=== PATIENT | female | born 1955 | race Caucasian/White ===

== ENCOUNTER → 2017-10-10 | Outpatient (CLI) | payer OTHER ==
[~2017-10-10] MED LIST: ALBU1AER9 INH; AMLO5TAB2 PO; CLOB-65 EXT; CONJ.6255 PO; DESO0.0562 TOP; FLUO20CA37 PO; FLUT0.0529 NAE; HYDR25TA4 PO; LISI40TA PO; OMEP20CA9 PO; OXYC-57 PO; SALI0.6517 NAE; SIMV20TA5 PO; TPRSR/25 PO; ZNT/150 PO
--- NOTE | 2017-10-10 15:32 | MAMMOGRAPHY REPORT ---
BILATERAL DIGITAL SCREENING MAMMOGRAM TOMOSYNTHESIS WITH CAD: 10/10/2017 CLINICAL HISTORY: Routine screening. Patient has no complaints. TECHNIQUE: Breast tomosynthesis in addition to standard 2D mammography was performed. Current study was also evaluated with a Computer Aided Detection (CAD) system. COMPARISON: Comparison is made to exams dated: 10/09/2016 mammogram, 10/06/2015 mammogram, 4 mammogram, 08/27/2013 mammogram, 08/24/2012 mammogram, and 08/22/2011 mammogram - [facility]. BREAST COMPOSITION: There are scattered areas of fibroglandular density in both breasts. FINDINGS: No suspicious masses, calcifications, or areas of architectural distortion are noted in ei ther breast. There has been no significant interval change compared to prior exams. IMPRESSION: ACR BI-RADS CATEGORY 1: NEGATIVE There is no mammographic evidence of malignancy. A 1 year screening mammogram is recommended. The pa tient will receive written notification of the results. Approximately 10% of breast cancers are not detected with mammography. A negative mammographic report should not delay biopsy if a clinically suggestive mass is present. Siena Figueroa M.D. ah/:10/10/2017 15:06:12 Catering Attendant: Carolyn MAST(Gely)(Yessica)(BD), [facility] letter sent: Normal 1/2 BI-RADS Code: ACR BI-RADS Category 1: Negative
== END | disposition home or self-care (01) ==
LOC: C.MAMM 11:34
PROVIDERS: ATTEND Obstetrics & Gynecology
DX: Z12.31 Encounter for screening mammogram for malignant neoplasm of breast (principal)

== ENCOUNTER → 2017-10-14 | Outpatient (CLI) | payer OTHER | END | disposition home or self-care (01) | LOC: C.PAPS 07:40 | PROVIDERS: ATTEND Obstetrics & Gynecology | DX: Z12.4 Encounter for screening for malignant neoplasm of cervix (principal) ==

== ENCOUNTER 2022-07-18 13:48 | Inpatient (IN) ==
--- NOTE | 2022-07-18 14:24 | Emergency Department Note ---
History of Present Illness General Chief complaint: Foot Injury/Pain Stated complaint: R ANKLE PAIN Time Seen by Provider: 07/18/22 14:21 History of Present Illness Maximum Pain Intensity: 5 This is a 66-year-old female that presents to the emergency department via private vehicle accompanied by with complaints of "right ankle pain". Patient notes that just prior to arrival today around lunchtime she was carrying some heavy objects down a flight of steps. She was able to descend nearly the entire flight except for the last 2 steps when she twisted the right ankle and fell. She denies striking the head or loss of consciousness. She noted immediate pain to the right ankle joint. She rates her current discomfort as a 5/10. She denies any other areas of pain beyond the right ankle. No headache. No chest pain or shortness of breath. No neck pain. Home Medications Medication Instructions Recorded Confirmed Type albuterol sulfate 2 puff inhalation Q4H PRN sob 05/19/19 07/18/22 History fluoxetine 20 mg tablet 60 mg PO QAM 05/19/19 07/18/22 History fluticasone propionate [Flonase 1 dose intranasal BID 05/19/19 07/18/22 History Allergy Relief] hydrochlorothiazide 25 mg tablet 25 mg PO QAM 05/19/19 07/18/22 History methocarbamol 500 mg tablet 500 mg PO TID PRN Muscle Spasm 05/19/19 07/18/22 History multivitamin 1 tab PO QPM 05/19/19 07/18/22 History omeprazole [Prilosec] 20 mg PO QAM 05/19/19 07/18/22 History cimetidine 300 mg tablet 300 mg PO ACHS 09/21/20 07/18/22 History clobetasol 0.05 % topical cream 1 applic topical BID PRN ud 02/16/21 07/18/22 History diphenhydramine HCl 25 mg tablet 25 mg PO BID PRN Allergy Symptoms 02/16/21 07/18/22 History (Benadryl Allergy) ibuprofen 200 mg tablet 200 mg PO Q6H PRN Pain 02/16/21 07/18/22 History estradiol 0.1 mg/24 hr semiweekly 1 patch transdermal 2XWK #24 ea 08/17/21 07/18/22 Rx transdermal patch medroxyprogesterone 5 mg tablet 5 mg PO QAM #90 tabs 11/02/21 09/29/22 Rx amlodipine 10 mg tablet 10 mg PO DAILY 07/18/22 07/18/22 History atorvastatin 20 mg tablet 20 mg PO DAILY 07/18/22 07/18/22 History calcium carb-ergocalciferol (vit 1 tab PO DAILY 07/18/22 07/18/22 History D2) 600 mg calcium-200 unit tablet empagliflozin 25 mg tablet 25 mg PO QAM 07/18/22 07/18/22 History (Jardiance) Allergies Allergy/AdvReac Type Severity Reaction Status Date / Time lisinopril Allergy Swelling Verified 03/05/21 06:25 of Lip/Tongue/Throat Past Med/Surg History Medical History Abnormal uterine bleeding (AUB) Depression DM type 2 (diabetes mellitus, type 2) NIDDM GERD (gastroesophageal reflux disease) History of migraine headaches HLD (hyperlipidemia) HTN (hypertension) Postoperative nausea TMJ (temporomandibular joint disorder) Surgical History History of appendectomy History of colonoscopy History of sinus surgery History of tooth extraction Hx of LASIK Family History Brother Alcohol abuse Father Alcohol abuse Bladder cancer Hypertension Mother FH: kidney cancer PONV (postoperative nausea and vomiting) Denies family history of Colon cancer Ovarian cancer Breast cancer Social History Smoking Status: Never smoker Second Hand Exposure: No; Hx Alcohol Use: Yes Alcohol type: hard liquor Alcohol Intake Frequency Comment: a couple of times a week Hx Substance Use: No Preferred Language: Fijian Communication Ability: Effective 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 Beliefs That Will Affect Care: None marital status: Current Living Situation: Spouse Current Living Situation Comment: dog Other Information That Helps Us Care for You: No Feels Safe at Home: Yes Safety Concerns: Feels Safe At This Time Assistive Devices: None Review of Systems A total of 10 systems reviewed and were otherwise negative Physical Exam Vital Signs Vital Signs - 24 hr 07/18/22 14:02 07/18/22 15:50 Temperature 36.2 C L 37.1 C Temperature Source Temporal Artery Scan Oral Pulse Rate 85 Pulse Rate [Left Finger] 72 Pulse Rhythm [Left Finger] Regular Pulse Strength [Left Finger] Normal Respiratory Rate 16 20 Respiratory Effort / Characteristics Non-Labored Spontaneous Non-Labored Spontaneous Respiratory Depth Normal Normal Respiratory Pattern Regular Regular Blood Pressure 138/74 Blood Pressure [Left Arm] 130/76 Blood Pressure Mean 95 Blood Pressure Mean [Left Arm] 94 Blood Pressure Position Sitting Pulse Oximetry 99 98 Oxygen Delivery Method Room Air Room Air Sepsis Recent Fever Within 48 Hours No Sepsis New/Unexplained Change in Mental Status No Sepsis Action Taken by Nursing No Action Required VITAL SIGNS - Vital signs and nursing notes were reviewed. Stable and afebrile. GENERAL -66-year-old female appearing her stated age who is in no acute distress. Communicates well with provider and answers questions appropriately. SKIN - Without rashes. No meningeal or petechial rash. There is bruising starting overlying the medial aspect of the right ankle that is purplish in nature. There are no breaks in the integument. HEAD - NC/AT. EYES - PERRL with EOMI bilaterally. EXTREMITIES - No clubbing or peripheral cyanosis. No pretibial edema present. Right ankle with obvious deformity. Right dorsalis pedis pulse intact. Cap refill of all toes of the right foot within normal limits. No break in the integument. There is no right knee, right mid barron or proximal fibular head tenderness. +5/5 strength noted in UE/LE bilaterally. NEUROLOGIC - Cranial nerves II through XII grossly intact. PSYCH - A&O, and cooperates fully with examiner. Pt is very pleasant and interacts well with examiner. Course Administered Medications Acetaminophen (Acetaminophen 500 Mg Tab) 1,000 mg PO Q8H PRN PRN Reason: Moderate Pain Stop: 08/17/22 17:55 Last Admin: 07/18/22 19:41 Dose: 1,000 mg Documented By: KATIA Famotidine (Famotidine 20 Mg Tab) 20 mg PO ACHS AKHIL Stop: 08/17/22 20:59 Last Admin: 07/18/22 19:42 Dose: 20 mg Documented By: KATIA Fluticasone Propionate (Fluticasone Propionate Na Spr 16 Gm Btl) 1 sprays NA BID AKHIL Stop: 08/17/22 20:59 Last Admin: 07/18/22 21:13 Dose: Not Given Documented By: KATIA Sodium Chloride (Nss 1000ml) 1,000 mls @ 80 mls/hr IV .[id number] AKHIL Stop: 08/17/22 19:59 Last Admin: 07/18/22 21:13 Dose: 80 mls/hr Documented By: KATIA Insulin Aspart (Insulin Aspart Per Unit) 0 units SC ACHS AKHIL Stop: 08/17/22 17:55 Last Admin: 07/18/22 21:06 Dose: Not Given Documented By: Admin: 07/18/22 18:46 Dose: Not Given Documented By: KDD Multivitamins (Multivitamin Tab) 1 tab PO QPM AKHIL Stop: 08/17/22 20:59 Last Admin: 07/18/22 19:42 Dose: 1 tab Documented By: KATIA Discontinued Medications Fentanyl Citrate (Fentanyl Citrate 100 Mcg/2 Ml Vial) 50 mcg IV NOW STA Stop: 07/18/22 17:02 Last Admin: 07/18/22 17:06 Dose: 50 mcg Documented By: NATHAN Magnesium Oxide (Magnesium Oxide 400 Mg Tab) 400 mg PO ONE ONE Stop: 07/18/22 19:47 Last Admin: 07/18/22 21:13 Dose: 400 mg Documented By: KATIA Ondansetron HCl (Ondansetron Inj 2 Mg/Ml 2 Ml Vial) 4 mg IV NOW STA Stop: 07/18/22 17:02 Last Admin: 07/18/22 17:06 Dose: 4 mg Documented By: NATHAN Potassium Chloride (Potassium Chloride Crtab 20 Meq Tabcr) 40 meq PO NOW STA Stop: 07/18/22 19:13 Last Admin: 07/18/22 19:40 Dose: 40 meq Documented By: KATIA Medical Decision Making Laboratory Data Result diagrams: 07/18/22 17:33 07/18/22 17:33 Lab Results 07/18/22 07/18/22 07/18/22 Range/Units 15:54 15:54 15:54 WBC Cancelled RBC Cancelled Hgb Cancelled Hct Cancelled MCV Cancelled MCH Cancelled MCHC Cancelled RDW Std Deviation Cancelled RDW Coeff of Leidy Cancelled Plt Count Cancelled MPV Cancelled Immature Gran % (Auto) Cancelled Neut % (Auto) Cancelled Lymph % (Auto) Cancelled [place] % (Auto) Cancelled Eos % (Auto) Cancelled Baso % (Auto) Cancelled Neut # (Auto) Cancelled Lymph # (Auto) Cancelled [place] # (Auto) Cancelled Eos # (Auto) Cancelled Baso # (Auto) Cancelled Immature Gran # (Auto) Cancelled Absolute Nucleated RBC Cancelled Nucleated RBC % (auto) Cancelled Neutrophils % (Manual) Cancelled Band Neutrophils % Cancelled Lymphocytes % (Manual) Cancelled Prolymphocyte % Cancelled Reactive Lymphs % (Man) Cancelled Monocytes % (Manual) Cancelled Eosinophils % (Manual) Cancelled Basophils % (Manual) Cancelled Metamyelocytes % (Man) Cancelled Myelocytes % (Man) Cancelled Promyelocytes % (Man) Cancelled Blast Cells % (Manual) Cancelled Plasma Cell % (Manual) Cancelled Other Cells % Cancelled Nucleated RBC % Cancelled Neutrophils # (Manual) Cancelled Band Neutrophils # Cancelled Total Absolute Neuts Cancelled Lymphocytes # (Manual) Cancelled Prolymphocyte # Cancelled Reactive Lymphs # Cancelled Total Abs Lymphocytes Cancelled Monocytes # (Manual) Cancelled Eosinophils # (Manual) Cancelled Basophils # (Manual) Cancelled Metamyelocytes # (Man) Cancelled Myelocytes # (Manual) Cancelled Promyelocytes # (Man) Cancelled Blast Cells # (Man) Cancelled Plasma Cell # (Manual) Cancelled Other Cells # Cancelled Nucleated RBCs # (Man) Cancelled Hypersegmented Neuts Cancelled Hyposegmented Neuts Cancelled Hypogranular Neuts Cancelled Large Granular Lymphs Cancelled # Lrg Granular Lymphs Cancelled Hairy Cells Cancelled Smudge Cells Cancelled Toxic Granulation Cancelled Toxic Vacuolation Cancelled Dohle Bodies Cancelled Edvin Rods Cancelled Platelet Estimate Cancelled Hypogranular Platelets Cancelled Clumped Platelets Cancelled Giant Platelets Cancelled Platelet Satelliting Cancelled RBC Morphology Cancelled Polychromasia Cancelled Hypochromasia Cancelled Poikilocytosis Cancelled Basophilic Stippling Cancelled Anisocytosis Cancelled Microcytosis Cancelled Macrocytosis Cancelled Spherocytes Cancelled Pappenheimer Bodies Cancelled Sickle Cells Cancelled Target Cells Cancelled Tear Drop Cells Cancelled Ovalocytes Cancelled Stomatocytes Cancelled [place] Bodies Cancelled Echinocytes Cancelled Acanthocytes (Spur) Cancelled Rouleaux Cancelled RBC Agglutinates Cancelled Schistocytes Cancelled Sezary Cell Cancelled PT 11.4 (9.0-12.0) Seconds INR 1.1 (0.9-1.1) APTT < 20.0 L (21.0-31.0) Seconds PTT Ratio 0.7 Sodium 135 L (136-145) mmol/L Potassium TNP Chloride 90 L (98-107) mmol/L Carbon Dioxide 23 (21-32) mmol/L Anion Gap 22 H (3-11) BUN 11 (6-23) mg/dl Creatinine 0.61 (0.6-1.2) mg/dl Est Cr Clr Drug Dosing 80.7 ml/min Est GFR ( Amer) 109.5 ml/min Est GFR (Non-Af Amer) 94.5 ml/min BUN/Creatinine Ratio 18.0 (10-20) Glucose 135 H (70-99(Fasting)) mg/dl Calcium 10.0 (8.5-10.1) mg/dl Total Bilirubin 0.4 (0.2-1.0) mg/dl AST TNP ALT 58 H (7-52) U/L Alkaline Phosphatase 60 (34-104) U/L Total Protein 8.5 H (6.0-8.3) gm/dl Albumin 4.9 (3.4-5.0) gm/dl Globulin 3.6 (2.5-4.0) gm/dl Albumin/Globulin Ratio 1.4 (0.9-2) SARS-CoV-2, RNA, NAAT (NEGATIVE) Blood Parasites ID Cancelled 07/18/22 Range/Units 16:04 WBC RBC Hgb Hct MCV MCH MCHC RDW Std Deviation RDW Coeff of Leidy Plt Count MPV Immature Gran % (Auto) Neut % (Auto) Lymph % (Auto) [place] % (Auto) Eos % (Auto) Baso % (Auto) Neut # (Auto) Lymph # (Auto) [place] # (Auto) Eos # (Auto) Baso # (Auto) Immature Gran # (Auto) Absolute Nucleated RBC Nucleated RBC % (auto) Neutrophils % (Manual) Band Neutrophils % Lymphocytes % (Manual) Prolymphocyte % Reactive Lymphs % (Man) Monocytes % (Manual) Eosinophils % (Manual) Basophils % (Manual) Metamyelocytes % (Man) Myelocytes % (Man) Promyelocytes % (Man) Blast Cells % (Manual) Plasma Cell % (Manual) Other Cells % Nucleated RBC % Neutrophils # (Manual) Band Neutrophils # Total Absolute Neuts Lymphocytes # (Manual) Prolymphocyte # Reactive Lymphs # Total Abs Lymphocytes Monocytes # (Manual) Eosinophils # (Manual) Basophils # (Manual) Metamyelocytes # (Man) Myelocytes # (Manual) Promyelocytes # (Man) Blast Cells # (Man) Plasma Cell # (Manual) Other Cells # Nucleated RBCs # (Man) Hypersegmented Neuts Hyposegmented Neuts Hypogranular Neuts Large Granular Lymphs # Lrg Granular Lymphs Hairy Cells Smudge Cells Toxic Granulation Toxic Vacuolation Dohle Bodies Edvin Rods Platelet Estimate Hypogranular Platelets Clumped Platelets Giant Platelets Platelet Satelliting RBC Morphology Polychromasia Hypochromasia Poikilocytosis Basophilic Stippling Anisocytosis Microcytosis Macrocytosis Spherocytes Pappenheimer Bodies Sickle Cells Target Cells Tear Drop Cells Ovalocytes Stomatocytes [place] Bodies Echinocytes Acanthocytes (Spur) Rouleaux RBC Agglutinates Schistocytes Sezary Cell PT (9.0-12.0) Seconds INR (0.9-1.1) APTT (21.0-31.0) Seconds PTT Ratio Sodium (136-145) mmol/L Potassium Chloride (98-107) mmol/L Carbon Dioxide (21-32) mmol/L Anion Gap (3-11) BUN (6-23) mg/dl Creatinine (0.6-1.2) mg/dl Est Cr Clr Drug Dosing ml/min Est GFR ( Amer) ml/min Est GFR (Non-Af Amer) ml/min BUN/Creatinine Ratio (10-20) Glucose (70-99(Fasting)) mg/dl Calcium (8.5-10.1) mg/dl Total Bilirubin (0.2-1.0) mg/dl AST ALT (7-52) U/L Alkaline Phosphatase (34-104) U/L Total Protein (6.0-8.3) gm/dl Albumin (3.4-5.0) gm/dl Globulin (2.5-4.0) gm/dl Albumin/Globulin Ratio (0.9-2) SARS-CoV-2, RNA, NAAT NEGATIVE (NEGATIVE) Blood Parasites ID Imaging Data Radiologist's Impression: Ankle X-Ray 07/18/22 14:31 RIGHT TIBIA AND FIBULA 2 VIEWS; RIGHT ANKLE 3 VIEWS CLINICAL HISTORY: Right leg injury. FINDINGS: AP and lateral views of the right tibia and fibula with AP, lateral, and oblique views of the ankle are obtained. No prior studies are available for comparison at the time of dictation. The skeletal structures are well mineralized for age. There is a comminuted spiral fracture of the distal fibula with small displaced fragments. There is lateral displacement of the lateral malleolus by up to 6 mm. There is a vertically oriented and displaced fracture of the posterior malleolus of the tibia. There is a displaced horizontal fracture through the base of the medial malleolus. There is lateral distraction of the malleolar fragment by 4 mm. There is inferior distraction of the medial malleolus by 8 mm. There is ankle dislocation. The medial joint space is widened, and there is mild dorsal subluxation of the tibia at the tibiotalar j oint. There is associated ankle joint effusion. Soft tissue edema is present around the ankle. The proximal tibia and fibula appear intact. The knee joint is grossly maintained. IMPRESSION: 1. Trimalleolar fracture/dislocation at the ankle joint as above. 2. The proximal tibia and fibula appear intact. Electronically signed by: Leroy You M.D. 07/18/2022 3:12 PM Foot X-Ray 07/18/22 14:31 XR foot RT min 3V routine CLINICAL HISTORY: R ankle/leg/foot injury/pain TECHNIQUE: 3 views of the right foot were obtained. Comparison: None available at the time of this dictation. FINDINGS: No fractures of the bones of the foot. Partial visualization of fracture dislocation of the ankle joint. The joint spaces are well preserved. Soft tissue swelling is seen about the ankle. IMPRESSION: Partial visualization of fracture dislocation of the ankle joint. The bones of the foot are normal. ACT 112: Negative or not required by law. Electronically signed by: Navarro Shore M.D. 07/18/2022 3:22 PM Tibia/Fibula X-Ray 07/18/22 14:31 RIGHT TIBIA AND FIBULA 2 VIEWS; RIGHT ANKLE 3 VIEWS CLINICAL HISTORY: Right leg injury. FINDINGS: AP and lateral views of the right tibia and fibula with AP, lateral, and oblique views of the ankle are obtained. No prior studies are available for comparison at the time of dictation. The skeletal structures are well mineralized for age. There is a comminuted spiral fracture of the distal fibula with small displaced fragments. There is lateral displacement of the lateral malleolus by up to 6 mm. There is a vertically oriented and displaced fracture of the posterior malleolus of the tibia. There is a displaced horizontal fracture through the base of the medial malleolus. There is lateral distraction of the malleolar fragment by 4 mm. There is inferior distraction of the medial malleolus by 8 mm. There is ankle dislocation. The medial joint space is widened, and there is mild dorsal subluxation of the tibia at the tibiotalar joint. There is associated ankle joint effusion. Soft tissue edema is present around the ankle. The proximal tibia and fibula appear intact. The knee joint is grossly maintained. IMPRESSION: 1. Trimalleolar fracture/dislocation at the ankle joint as above. 2. The proximal tibia and fibula appear intact. Electronically signed by: Leroy You M.D. 07/18/2022 3:12 PM Chest X-Ray 07/18/22 16:15 XR chest 1V portable CLINICAL HISTORY: Preoperative evaluation. COMPARISON STUDY: No previous studies for comparison. FINDINGS: Lung volumes are normal. No definite consolidation to suggest pneumonia. There is possible mild medial left basilar airspace opacity. There is no pneumothorax or pleural effusion. Cardiac size is normal. Mediastinal contours are normal. There is no evidence for pulmonary edema. IMPRESSION: 1. No definite acute cardiopulmonary findings. 2. Possible mild medial left basilar opacity. This is probably artifactual. However, follow-up nonemergent PA and lateral chest radiographs are recommended. ACT 112: Negative or not required by law. Electronically signed by: Pratik Velazquez M.D. 07/18/2022 5:09 PM RIGHT ANKLE 3 VIEWS CLINICAL HISTORY: Postreduction examination. FINDINGS: 3 views the right ankle are compared to study dated 07/18/2022. The examination is performed through a splint, obscuring fine bony detail. The skeletal structures are well mineralized for age. There is significantly improved alignment of trimalleolar ankle fractures as compared to previous. There is mild persistent medial widening of the joint space. AP alignment at the tibiotalar articulation is near anatomic. The medial malleolus is displaced inferiorly by approximately 6 mm. There is persistent dorsal distraction of the posterior tibial plafond. Overlying soft tissue edema is noted. IMPRESSION: Significantly improved alignment of trimalleolar ankle fractures as compared to the prereduction examination. Electronically signed by: Leroy oYu M.D. 07/18/2022 5:47 PM MDM Narrative Patient was seen and evaluated as above in room D06 and then D02. Review was performed of nursing notes and vital signs. After obtaining a thorough history and physical examination the above work up was performed. Patient presents to us today with right ankle pain status post injury to the right ankle. This appears to be an isolated injury. No other areas of injury identified. Patient clinically well-appearing. Vital signs stable. By history and exam this appears to be consistent with a mechanical fall contributing to an isolated right ankle injury. Options of care were discussed with the patient. X-ray of the right ankle was obtained. The patient respectfully declined pain medication. She did prefer to take 400 mg of ibuprofen that she had with her. I believe this is reasonable. X-rays unfortunately do reveal that she has a trimalleolar fracture of the right ankle with subluxation/dislocation. An IV was placed pending need for reduction. I did discuss the case with the on-call orthopedist, Dr. Veloz. Decision was made for medical admission with orthopedic consult pending surgical intervention for this tomorrow here in the hospital. We also discussed the need for reduction here in the ED. I discussed this with the patient as well as the ED attending physician. The patient does not want to have any conscious sedation at the present time, rather try some pain medication and reduction while awake. I believe this is reasonable. I then discussed this with the medicine service for admission. They came to evaluate the patient. I did order labs for the patient pending operative intervention. I also ordered a COVID test. There was minimal leukocytosis 11.10 which was felt to be reactive. No anemia. There is mild transaminitis noted. COVID test negative. Verbal consent was obtained for reduction. Benefit versus risk discussed with the patient. It is felt that the benefit outweighs risk. Patient was given IV fentanyl for pain. She was given IV Zofran as well and will note that she did have some nausea during the reduction. I then identified all bony prominences of the right ankle region. I then applied longitudinal traction to the patient's right foot/ankle region while also providing passive dorsiflexion of the right ankle. Simultaneously there was gentle anterior traction applied by gently grasping the toes. This provided successful reduction. Patient was neurovascularly intact post reduction. Repeat x-ray was performed while applying cast padding. There was significant improvement in regard to anatomical alignment. A well-padded posterior short leg and stirrup was applied to the right lower extremity. She was neurovascularly intact post splint placement. Patient will be admitted to the hospitalist service. Hospitalist service did add on additional tests to include but not limited to an EKG. I will note that upon reviewing patient test results the patient's EKG does reveal a prolonged QT. QT was 404 and QTC was 515. At this point we will avoid any further QT prolonging agents. I did discussed this with Lorene Macdonald PA-C of the [facility] hospitalist service that evaluated the patient here in the ED. Please refer to further documentation regarding her stay as well as further evaluation and management. Case was discussed with the attending physician. GCS: 15 In the evaluation and treatment of this patient, the following differential diagnoses were considered: Ankle Fracture, Ankle Sprain, Distal Fibula Fracture, Distal Tibia Fracture, Foot Fracture, [place] Fracture, among others. Impression & Plan Trimalleolar fracture of right ankle, Acute right ankle pain Discharge Plan Visit Data Chief Complaint: Foot Injury/Pain Stated Complaint: R ANKLE PAIN ED Provider: Jeremiah Guerra ED Midlevel Provider: Max Lowe Discharge Problem: Trimalleolar fracture of right ankle, Acute right ankle pain Patient Disposition: Admitted As Inpatient Condition: Good Discharge Instructions Interventions: ED Discharge Assessment Last Done: 07/18/22 17:35
--- NOTE | 2022-07-18 15:13 | XRay Report ---
RIGHT TIBIA AND FIBULA 2 VIEWS; RIGHT ANKLE 3 VIEWS CLINICAL HISTORY: Right leg injury. FINDINGS: AP and lateral views of the right tibia and fibula with AP, lateral, and oblique views of t he ankle are obtained. No prior studies are available for comparison at the time of dictation. The sk eletal structures are well mineralized for age. There is a comminuted spiral fracture of the distal f ibula with small displaced fragments. There is lateral displacement of the lateral malleolus by up to 6 mm. There is a vertically oriented and displaced fracture of the posterior malleolus of the tibia. There is a displaced horizontal fracture through the base of the medial malleolus. There is lateral distraction of the malleolar fragment by 4 mm. There is inferior distraction of the medial malleolus by 8 mm. There is ankle dislocation. The medial joint space is widened, and there is mild dorsal subl uxation of the tibia at the tibiotalar joint. There is associated ankle joint effusion. Soft tissue e liseth is present around the ankle. The proximal tibia and fibula appear intact. The knee joint is siri sly maintained. IMPRESSION: 1. Trimalleolar fracture/dislocation at the ankle joint as above. 2. The proximal tibia and fibula appear intact. Electronically signed by: Leroy You M.D. 07/18/2022 3:12 PM
--- NOTE | 2022-07-18 15:23 | XRay Report ---
XR foot RT min 3V routine CLINICAL HISTORY: R ankle/leg/foot injury/pain TECHNIQUE: 3 views of the right foot were obtained. Comparison: None available at the time of this dictation. FINDINGS: No fractures of the bones of the foot. Partial visualization of fracture dislocation of the ankle hernan nt. The joint spaces are well preserved. Soft tissue swelling is seen about the ankle. IMPRESSION: Partial visualization of fracture dislocation of the ankle joint. The bones of the foot are normal. ACT 112: Negative or not required by law. Electronically signed by: Navarro Shore M.D. 07/18/2022 3:22 PM
--- NOTE | 2022-07-18 16:15 | History & Physical Report ---
Date of Service July 18, 2022 Assessment & Plan (1) Trimalleolar fracture of right ankle: Plan: - Admit to med surg - Ortho consulted for possible surgical intervention - Xray imaging reviewed showing Right ankle trimalleolar fracture - Allow diet currently, make n.p.o. at midnight -Pain control with Tylenol [id number], oxycodone every 6 hours as needed, IV morphine as needed for severe pain -Bowel regimen ordered with MiraLAX and Dulcolax daily -PT/OT consults -EKG reviewed, without any acute findings -CXR one-view portable ordered for preoperative assessment -Neg COVID (2) Hypercholesterolemia: Plan: -Continue statin therapy (3) HTN (hypertension): Plan: -May continue amlodipine, HCTZ (4) DM II (diabetes mellitus, type II), controlled: Plan: - ISS with Accu-Cheks ACHS, hold Jardiance, - Check A1C with am labs (5) Common migraine without aura: Plan: -History of such traditionally uses ibuprofen as an outpatient, has not needed medication recently (6) GERD (gastroesophageal reflux disease): Plan: - Cont omeprazole (7) Depression: Plan: - Cont prozac 60 mg daily DVT ppx: - teds, scds, heparin subq and hold heparin prior the morning of surgery CODE: Full Dispo: From home, remain in the hospital x 2 nights for possible surgical intervention per ortho History of Present Illness Chief Complaint: Foot injury, Ankle pain Primary Care Provider: Ahmet Chatterjee MD This is a 66-year-old female with a PMHx of DM type II, obesity, hypertension, hyperlipidemia, migraines, anxiety and depression, who presents today after a fall she sustained while going down the basement stairs while carrying a large crockpot, missed stepped on the second to last step and fell down work resulting in a right trimalleolar fracture which was found in the ER. She was unable to bear weight at home. She reports taking ibuprofen earlier today due to pain and states that it is moderate at this point in time. Her was home and helped her up the stairs from the basement but reports it was very difficult. She denies any presyncopal symptoms, lightheadedness, dizziness, denies hitting of her head or loss of consciousness. She did take all her morning medications today routinely. She has been eating and drinking well, last time she had anything by mouth was very early this morning. She is awaiting a ankle fixation in the ER currently. Allergies Allergy/AdvReac Type Severity Reaction Status Date / Time lisinopril Allergy Swelling Verified 03/05/21 06:25 of Lip/Tongue/Throat Home Medications Medication Instructions Recorded Confirmed Type albuterol sulfate 2 puff inhalation Q4H PRN sob 05/19/19 07/18/22 History fluoxetine 20 mg tablet 60 mg PO QAM 05/19/19 07/18/22 History fluticasone propionate [Flonase 1 dose intranasal BID 05/19/19 07/18/22 History Allergy Relief] hydrochlorothiazide 25 mg tablet 25 mg PO QAM 05/19/19 07/18/22 History methocarbamol 500 mg tablet 500 mg PO TID PRN Muscle Spasm 05/19/19 07/18/22 History multivitamin 1 tab PO QPM 05/19/19 07/18/22 History omeprazole [Prilosec] 20 mg PO QAM 05/19/19 07/18/22 History cimetidine 300 mg tablet 300 mg PO ACHS 09/21/20 07/18/22 History clobetasol 0.05 % topical cream 1 applic topical BID PRN ud 02/16/21 07/18/22 History diphenhydramine HCl 25 mg tablet 25 mg PO BID PRN Allergy Symptoms 02/16/21 07/18/22 History (Benadryl Allergy) ibuprofen 200 mg tablet 200 mg PO Q6H PRN Pain 02/16/21 07/18/22 History estradiol 0.1 mg/24 hr semiweekly 1 patch transdermal 2XWK #24 ea 08/17/21 07/18/22 Rx transdermal patch medroxyprogesterone 5 mg tablet 5 mg PO QAM #90 tabs 08/21/21 07/18/22 Rx amlodipine 10 mg tablet 10 mg PO DAILY 07/18/22 07/18/22 History atorvastatin 20 mg tablet 20 mg PO DAILY 07/18/22 07/18/22 History calcium carb-ergocalciferol (vit 1 tab PO DAILY 07/18/22 07/18/22 History D2) 600 mg calcium-200 unit tablet empagliflozin 25 mg tablet 25 mg PO QAM 07/18/22 07/18/22 History (Jardiance) Past Med/Surg History Medical History Abnormal uterine bleeding (AUB) Depression DM type 2 (diabetes mellitus, type 2) NIDDM GERD (gastroesophageal reflux disease) History of migraine headaches HLD (hyperlipidemia) HTN (hypertension) Postoperative nausea TMJ (temporomandibular joint disorder) Surgical History History of appendectomy History of colonoscopy History of sinus surgery History of tooth extraction Hx of LASIK Family History Brother Alcohol abuse Father Alcohol abuse Bladder cancer Hypertension Mother FH: kidney cancer PONV (postoperative nausea and vomiting) Denies family history of Colon cancer Ovarian cancer Breast cancer Social History Smoking Status: Never smoker Second Hand Exposure: No; Hx Alcohol Use: Yes Alcohol type: hard liquor Alcohol Intake Frequency Comment: a couple of times a week Hx Substance Use: No Preferred Language: Occitan Communication Ability: Effective Game Master Required: No Beliefs That Will Affect Care: None marital status: Current Living Situation: Spouse Current Living Situation Comment: dog Other Information That Helps Us Care for You: No Feels Safe at Home: Yes Safety Concerns: Feels Safe At This Time Assistive Devices: None Review of Systems Review of Systems: Constitutional: No fever, sweats or chills Eyes: No diplopia, no worsening or blurred vision ENT: normal hearing, no trouble swallowing Respiratory: No cough, sputum, dyspnea at rest or on exertion Cardiovascular: No chest pain, tightness or palpitations Abdomen: No pain, nausea, vomiting, diarrhea or constipation Musculoskeletal: R ankle joint pain fairly well controlled, no calf pain, swelling Neurologic: No weakness, numbness/tingling, or balance problems Psychiatric: No anxiety or depression Skin: No rash or itch Physical Exam Physical Exam: General: awake, alert, no apparent distress, obese with BMI of 33.8 Head: Normocephalic, atraumatic ENT: PERRL, EOMI, no pharyngeal exudate, mucous membranes moist Chest: Clear to auscultation, on room air, no adventitious breath sounds Cardiac: Regular rate and rhythm, no murmur, no JVD, normal peripheral pulses, good capillary refill Abdominal: NABS x 4 quadrants, soft, nondistended, nontender to palpation, no rebound or guarding Extremities: R ankle is swollen, ecchymotic, ice pack in place, sensation to light touch intact, able to move toes without difficulty, Otherwise normal inspection, no peripheral edema or erythema, calfs nontender to palpation Psych: Normal mood and affect Neuro: AAO x 3, strength intact bilaterally and rated 5/5, no motor deficits, speech is clear, no peripheral sensory deficits Results & Data Results & Data ([facility]) Vital Signs (Past 12 Hours) Vital Signs Temp Pulse Pulse Resp BP BP Pulse Ox 07/18/22 15:50 37.1 C 72 20 130/76 98 07/18/22 14:02 36.2 C L 85 16 138/74 99 O2 Del Method 07/18/22 15:50 Room Air 07/18/22 14:02 Room Air Laboratory Results 07/18/22 07/18/22 07/18/22 16:04 15:54 15:54 WBC RBC Hgb Hct MCV MCH MCHC RDW Std Deviation RDW Coeff of Leidy Plt Count MPV Immature Gran % (Auto) Neut % (Auto) Lymph % (Auto) Valley % (Auto) Eos % (Auto) Baso % (Auto) Neut # (Auto) Lymph # (Auto) Valley # (Auto) Eos # (Auto) Baso # (Auto) Immature Gran # (Auto) Absolute Nucleated RBC Nucleated RBC % (auto) Neutrophils % (Manual) Band Neutrophils % Lymphocytes % (Manual) Prolymphocyte % Reactive Lymphs % (Man) Monocytes % (Manual) Eosinophils % (Manual) Basophils % (Manual) Metamyelocytes % (Man) Myelocytes % (Man) Promyelocytes % (Man) Blast Cells % (Manual) Plasma Cell % (Manual) Other Cells % Nucleated RBC % Neutrophils # (Manual) Band Neutrophils # Total Absolute Neuts Lymphocytes # (Manual) Prolymphocyte # Reactive Lymphs # Total Abs Lymphocytes Monocytes # (Manual) Eosinophils # (Manual) Basophils # (Manual) Metamyelocytes # (Man) Myelocytes # (Manual) Promyelocytes # (Man) Blast Cells # (Man) Plasma Cell # (Manual) Other Cells # Nucleated RBCs # (Man) Hypersegmented Neuts Hyposegmented Neuts Hypogranular Neuts Large Granular Lymphs # Lrg Granular Lymphs Hairy Cells Smudge Cells Toxic Granulation Toxic Vacuolation Dohle Bodies Edvin Rods Platelet Estimate Hypogranular Platelets Clumped Platelets Giant Platelets Platelet Satelliting RBC Morphology Polychromasia Hypochromasia Poikilocytosis Basophilic Stippling Anisocytosis Microcytosis Macrocytosis Spherocytes Pappenheimer Bodies Sickle Cells Target Cells Tear Drop Cells Ovalocytes Stomatocytes Tobin-Campo Bodies Echinocytes Acanthocytes (Spur) Rouleaux RBC Agglutinates Schistocytes Sezary Cell PT 11.4 INR 1.1 APTT < 20.0 L PTT Ratio 0.7 Sodium 135 L Potassium TNP Chloride 90 L Carbon Dioxide 23 Anion Gap 22 H BUN 11 Creatinine 0.61 Est Cr Clr Drug Dosing 80.7 Est GFR ( Amer) 109.5 Est GFR (Non-Af Amer) 94.5 BUN/Creatinine Ratio 18.0 Glucose 135 H Calcium 10.0 Total Bilirubin 0.4 AST TNP ALT 58 H Alkaline Phosphatase 60 Total Protein 8.5 H Albumin 4.9 Globulin 3.6 Albumin/Globulin Ratio 1.4 SARS-CoV-2, RNA, NAAT NEGATIVE Blood Parasites ID 07/18/22 15:54 WBC Cancelled RBC Cancelled Hgb Cancelled Hct Cancelled MCV Cancelled MCH Cancelled MCHC Cancelled RDW Std Deviation Cancelled RDW Coeff of Leidy Cancelled Plt Count Cancelled MPV Cancelled Immature Gran % (Auto) Cancelled Neut % (Auto) Cancelled Lymph % (Auto) Cancelled Valley % (Auto) Cancelled Eos % (Auto) Cancelled Baso % (Auto) Cancelled Neut # (Auto) Cancelled Lymph # (Auto) Cancelled Valley # (Auto) Cancelled Eos # (Auto) Cancelled Baso # (Auto) Cancelled Immature Gran # (Auto) Cancelled Absolute Nucleated RBC Cancelled Nucleated RBC % (auto) Cancelled Neutrophils % (Manual) Cancelled Band Neutrophils % Cancelled Lymphocytes % (Manual) Cancelled Prolymphocyte % Cancelled Reactive Lymphs % (Man) Cancelled Monocytes % (Manual) Cancelled Eosinophils % (Manual) Cancelled Basophils % (Manual) Cancelled Metamyelocytes % (Man) Cancelled Myelocytes % (Man) Cancelled Promyelocytes % (Man) Cancelled Blast Cells % (Manual) Cancelled Plasma Cell % (Manual) Cancelled Other Cells % Cancelled Nucleated RBC % Cancelled Neutrophils # (Manual) Cancelled Band Neutrophils # Cancelled Total Absolute Neuts Cancelled Lymphocytes # (Manual) Cancelled Prolymphocyte # Cancelled Reactive Lymphs # Cancelled Total Abs Lymphocytes Cancelled Monocytes # (Manual) Cancelled Eosinophils # (Manual) Cancelled Basophils # (Manual) Cancelled Metamyelocytes # (Man) Cancelled Myelocytes # (Manual) Cancelled Promyelocytes # (Man) Cancelled Blast Cells # (Man) Cancelled Plasma Cell # (Manual) Cancelled Other Cells # Cancelled Nucleated RBCs # (Man) Cancelled Hypersegmented Neuts Cancelled Hyposegmented Neuts Cancelled Hypogranular Neuts Cancelled Large Granular Lymphs Cancelled # Lrg Granular Lymphs Cancelled Hairy Cells Cancelled Smudge Cells Cancelled Toxic Granulation Cancelled Toxic Vacuolation Cancelled Dohle Bodies Cancelled Edvin Rods Cancelled Platelet Estimate Cancelled Hypogranular Platelets Cancelled Clumped Platelets Cancelled Giant Platelets Cancelled Platelet Satelliting Cancelled RBC Morphology Cancelled Polychromasia Cancelled Hypochromasia Cancelled Poikilocytosis Cancelled Basophilic Stippling Cancelled Anisocytosis Cancelled Microcytosis Cancelled Macrocytosis Cancelled Spherocytes Cancelled Pappenheimer Bodies Cancelled Sickle Cells Cancelled Target Cells Cancelled Tear Drop Cells Cancelled Ovalocytes Cancelled Stomatocytes Cancelled Tobin-Campo Bodies Cancelled Echinocytes Cancelled Acanthocytes (Spur) Cancelled Rouleaux Cancelled RBC Agglutinates Cancelled Schistocytes Cancelled Sezary Cell Cancelled PT INR APTT PTT Ratio Sodium Potassium Chloride Carbon Dioxide Anion Gap BUN Creatinine Est Cr Clr Drug Dosing Est GFR ( Amer) Est GFR (Non-Af Amer) BUN/Creatinine Ratio Glucose Calcium Total Bilirubin AST ALT Alkaline Phosphatase Total Protein Albumin Globulin Albumin/Globulin Ratio SARS-CoV-2, RNA, NAAT Blood Parasites ID Cancelled Diagnostic Findings Ankle X-Ray 07/18/22 14:31 RIGHT TIBIA AND FIBULA 2 VIEWS; RIGHT ANKLE 3 VIEWS CLINICAL HISTORY: Right leg injury. FINDINGS: AP and lateral views of the right tibia and fibula with AP, lateral, and oblique views of the ankle are obtained. No prior studies are available for comparison at the time of dictation. The skeletal structures are well mineralized for age. There is a comminuted spiral fracture of the distal fibula with small displaced fragments. There is lateral displacement of the lateral malleolus by up to 6 mm. There is a vertically oriented and displaced fracture of the posterior malleolus of the tibia. There is a displaced horizontal fracture through the base of the medial malleolus. There is lateral distraction of the malleolar fragment by 4 mm. There is inferior distraction of the medial malleolus by 8 mm. There is ankle dislocation. The medial joint space is widened, and there is mild dorsal subluxation of the tibia at the tibiotalar joint. There is associated ankle joint effusion. Soft tissue edema is present around the ankle. The proximal tibia and fibula appear intact. The knee joint is grossly maintained. IMPRESSION: 1. Trimalleolar fracture/dislocation at the ankle joint as above. 2. The proximal tibia and fibula appear intact. Electronically signed by: Leroy You M.D. 07/18/2022 3:12 PM Foot X-Ray 07/18/22 14:31 XR foot RT min 3V routine CLINICAL HISTORY: R ankle/leg/foot injury/pain TECHNIQUE: 3 views of the right foot were obtained. Comparison: None available at the time of this dictation. FINDINGS: No fractures of the bones of the foot. Partial visualization of fracture dislocation of the ankle joint. The joint spaces are well preserved. Soft tissue swelling is seen about the ankle. IMPRESSION: Partial visualization of fracture dislocation of the ankle joint. The bones of the foot are normal. ACT 112: Negative or not required by law. Electronically signed by: Navarro Shore M.D. 07/18/2022 3:22 PM Tibia/Fibula X-Ray 07/18/22 14:31 RIGHT TIBIA AND FIBULA 2 VIEWS; RIGHT ANKLE 3 VIEWS CLINICAL HISTORY: Right leg injury. FINDINGS: AP and lateral views of the right tibia and fibula with AP, lateral, and oblique views of the ankle are obtained. No prior studies are available for comparison at the time of dictation. The skeletal structures are well mineraliz ed for age. There is a comminuted spiral fracture of the distal fibula with small displaced fragments. There is lateral displacement of the lateral malleolus by up to 6 mm. There is a vertically oriented and displaced fracture of the posterior malleolus of the tibia. There is a displaced horizontal fracture through the base of the medial malleolus. There is lateral distraction of the malleolar fragment by 4 mm. There is inferior distraction of the medial malleolus by 8 mm. There is ankle dislocation. The medial joint space is widened, and there is mild dorsal subluxation of the tibia at the tibiotalar joint. There is associated ankle joint effusion. Soft tissue edema is present around the ankle. The proximal tibia and fibula appear intact. The knee joint is grossly maintained. IMPRESSION: 1. Trimalleolar fracture/dislocation at the ankle joint as above. 2. The proximal tibia and fibula appear intact. Electronically signed by: Leroy You M.D. 07/18/2022 3:12 PM Chest X-Ray 07/18/22 16:15 XR chest 1V portable CLINICAL HISTORY: Preoperative evaluation. COMPARISON STUDY: No previous studies for comparison. FINDINGS: Lung volumes are normal. No definite consolidation to suggest pneumonia. There is possible mild medial left basilar airspace opacity. There is no pneumothorax or pleural effusion. Cardiac size is normal. Mediastinal co ntours are normal. There is no evidence for pulmonary edema. IMPRESSION: 1. No definite acute cardiopulmonary findings. 2. Possible mild medial left basilar opacity. This is probably artifactual. However, follow-up nonemergent PA and lateral chest radiographs are recommended. ACT 112: Negative or not required by law. Electronically signed by: Pratik Velazquez M.D. 07/18/2022 5:09 PM ECG Additional Comments: NSR with HR in the 70s, no ST wave inversions or elevations or signs of ischemia. Code Status & VTE Plan Code Status Full Code- discussed with the patient at bedside Supervising Physician Co-Signing Physician Notes Pt seen and examined by me, care coordinated w/ Lamar Macdonald pls refer to her note above for further detail. Pt is a 66-year-old F with DM type II, obesity, hypertension, hyperlipidemia, migraines, anxiety and depression, who presents with ankle fx after a fall. The fall was mechanical, and she denies any presyncopal symptoms, lightheadedness, dizziness,or loss of consciousness. In the ED QTC prolonged on EKG. Repeat BMP ordered and shows hypokalemia of 2.9. Mag 1.9. Replace potassium and magnesium, and repeat blood work tomorrow morning. Repeat ECG tomorrow. Avoid QTC prolonging agents. Patient is currently laying in bed, in no acute distress. She is alert oriented answering questions appropriately. Denies any chest pain or shortness of breath. Denies any abdomen pain or nausea. She was seen by orthopedics, and there is plan for ankle surgery tomorrow. MD Rosey
[2022-07-18 16:24] LABS: INR 1.1 (0.9-1.1); Partial Thromboplastin Ratio 0.7; Prothrombin Time 11.4 Seconds (9.0-12.0)
[2022-07-18 16:36] LABS: Partial Thromboplastin Time < 20.0 Seconds (21.0-31.0)
[2022-07-18 16:43] LABS: Alanine Aminotransferase 58 U/L (7-52); Albumin Globulin Ratio 1.4 (0.9-2); Albumin Level 4.9 gm/dl (3.4-5.0); Alkaline Phosphatase 60 U/L (34-104); Anion Gap 22 (3-11); Bilirubin,Total 0.4 mg/dl (0.2-1.0); Blood Urea Nitrogen 11 mg/dl (6-23); Carbon Dioxide 23 mmol/L (21-32); Chloride 90 mmol/L (98-107); Creatinine Clr Calc Pharmacy 80.7 ml/min; Est GFR (African American) 109.5 ml/min; Est GFR (Non-African American) 94.5 ml/min; Globulin 3.6 gm/dl (2.5-4.0); Glucose 135 mg/dl (70-99(Fasting)); Sodium 135 mmol/L (136-145); Total Protein 8.5 gm/dl (6.0-8.3)
--- NOTE | 2022-07-18 16:58 | Emergency Department Note ---
ED Visit Note I was consulted by the Advanced Practice Provider. I saw Max Lowe PA-C the patient personally and performed a substantive portion of the visit. This includes aspects of the HPI, MDM, diagnostic interpretations, and disposition/plan. Patient presented after fall. Patient does have a trimalleolar fracture. .
[2022-07-18] MEDS ORDERED: fentaNYL citrate 100 MCG/2 ML VIAL IV STA (17:01)
[2022-07-18] MEDS ORDERED: ONDANSETRON INJ 2 MG/ML 2 ML VIAL IV STA (17:01)
--- NOTE | 2022-07-18 17:11 | XRay Report ---
XR chest 1V portable CLINICAL HISTORY: Preoperative evaluation. COMPARISON STUDY: No previous studies for comparison. FINDINGS: Lung volumes are normal. No definite consolidation to suggest pneumonia. There is possible mild medial left basilar airspace opacity. There is no pneumothorax or pleural effusion. Cardiac size is normal. Mediastinal contours are normal. There is no evidence for pulmonary edema. IMPRESSION: 1. No definite acute cardiopulmonary findings. 2. Possible mild medial left basilar opacity. This is probably artifactual. However, follow-up noneme rgent PA and lateral chest radiographs are recommended. ACT 112: Negative or not required by law. Electronically signed by: Pratik Velazquez M.D. 07/18/2022 5:09 PM
--- NOTE | 2022-07-18 17:48 | XRay Report ---
RIGHT ANKLE 3 VIEWS CLINICAL HISTORY: Postreduction examination. FINDINGS: 3 views the right ankle are compared to study dated 07/18/2022. The examination is performed through a splint, obscuring fine bony detail. The skeletal structures are well mineralized for age. There is significantly improved alignment of trimalleolar ankle fractures as compared to previous. Th ere is mild persistent medial widening of the joint space. AP alignment at the tibiotalar articulatio n is near anatomic. The medial malleolus is displaced inferiorly by approximately 6 mm. There is pers istent dorsal distraction of the posterior tibial plafond. Overlying soft tissue edema is noted. IMPRESSION: Significantly improved alignment of trimalleolar ankle fractures as compared to the prere duction examination. Electronically signed by: Leroy You M.D. 07/18/2022 5:47 PM
[2022-07-18] MEDS ORDERED: CARBOHYDRATES FOR HYPOGLYCEMIA PO PRN (17:56)
[2022-07-18] MEDS ORDERED: MoRPHine SULFATE 4 MG/ML 1 ML CARP\\VIAL IV PRN (17:56)
[2022-07-18] MEDS ORDERED: diphenhydrAMINE Capsule 25 MG CAP PO PRN (17:56)
[2022-07-18] MEDS ORDERED: GLUCAGON FOR INJ 1 MG VIAL SQ PRN (17:56)
[2022-07-18] MEDS ORDERED: GLUCOSE 10 TAB/TUBE PO PRN (17:56)
[2022-07-18] MEDS ORDERED: oxyCODONE HCL IR 5 MG TAB (IMMEDIATE RELEASE) PO PRN (17:56)
[2022-07-18] MEDS ORDERED: METHOCARBAMOL 500 MG TABLET PO PRN (17:56)
[2022-07-18] MEDS ORDERED: GLUCOSE 40% GEL 15 GM TUBE PO PRN (17:56)
[2022-07-18] MEDS ORDERED: ONDANSETRON INJ 2 MG/ML 2 ML VIAL IV PRN (17:56)
[2022-07-18] MEDS ORDERED: DEXTROSE 50% 50 ML SYRINGE IV PRN (17:56)
[2022-07-18 18:18] LABS: Basophils # (auto) 0.08 K/uL (0-0.2); Basophils % (auto) 0.7 %; Eosinophils # (auto) 0.02 K/uL (0-0.50); Eosinophils % (auto) 0.2 %; Hemoglobin 14.4 g/dl (12.0-16.0); Immature Granulocytes # (auto) 0.05 K/uL (0.00-0.02); Immature Granulocytes % (auto) 0.5 %; Lymphocytes # (auto) 1.12 K/uL (1.2-3.4); Lymphocytes % (auto) 10.1 %; Mean Corpuscular Hemoglobin 31.1 pg (25.0-34.0); Mean Corpuscular Hgb Conc 35.1 g/dL (32.0-36.0); Mean Corpuscular Volume 88.6 fL (80.0-100.0); Mean Platelet Volume 9.5 fL (9.4-12.3); Monocytes # (auto) 0.41 K/uL (0.24-0.82); Monocytes % (auto) 3.7 %; Neutrophils # (auto) 9.42 K/uL (1.4-6.5); Neutrophils % (auto) 84.8 %; Platelet Count 378 K/uL (130-400); RDW Coefficient of Variation 13.3 % (11.5-14.5); RDW Standard Deviation 43.4 fL (36.4-46.3); Red Blood Count 4.63 M/uL (3.93-5.22)
[2022-07-18 18:43] LABS: Calcium 9.8 mg/dl (8.5-10.1); Creatinine Clr Calc Pharmacy 84.1 ml/min; Est GFR (African American) 111.3 ml/min; Est GFR (Non-African American) 96.1 ml/min; Magnesium 1.9 mg/dl (1.7-2.4); Potassium 2.9 mmol/L (3.5-5.1)
[2022-07-18] MEDS: INSULIN ASPART PER UNIT SC SCH ×2 (18:46→21:06)
--- NOTE | 2022-07-18 19:09 | Orthopedic Consultation ---
Date of Service July 18, 2022 Assessment & Plan (1) Trimalleolar fracture of right ankle: Patient underwent closed reduction by the ER staff in the emergency room. A splint was placed. Postreduction films revealed it to be adequately relocated. He has been admitted by the medicine service and evaluated. She is medically optimized. Will come proceed with open reduction internal fixation of the right ankle tomorrow. The risk meant this procedure explained the patient clued but not limited to DVT PE infection neurological injury vascular bleeding palm pain limb range of motion stiffness incomplete relief of symptoms need for further surgery in future symptomatic hardware nonunion etc. The patient understands and desires to proceed. Informed consent was obtained. Will keep her leg elevated tonight. We will ice it. She will likely stay overnight Friday and do therapy in the morning and discharge hopefully the home after that. History of Present Illness Reason for Consultation: . Right ankle fracture. Requesting Physician: . Attending Physician: Stevie Currie MD . Patient is a 66-year-old female who sustained injury to her ankle late this morning. She was descending some stairs when she missed the last step and twisted her ankle. The cute onset of pain. She had deformity to her ankle was unable to ambulate. She brought the emergency room where x-rays of the right ankle fracture dislocation. Her ankle was reduced by the ER staff, she has been admitted by the medicine service and indicated for surgical treatment. We have been consulted for treatment. Denies any history of ankle problems in the past. No other injuries. Allergies Allergy/AdvReac Type Severity Reaction Status Date / Time lisinopril Allergy Swelling Verified 03/05/21 06:25 of Lip/Tongue/Throat Home Medications Medication Instructions Recorded Confirmed Type albuterol sulfate 2 puff inhalation Q4H PRN sob 05/19/19 07/18/22 History fluoxetine 20 mg tablet 60 mg PO QAM 05/19/19 07/18/22 History fluticasone propionate [Flonase 1 dose intranasal BID 05/19/19 07/18/22 History Allergy Relief] hydrochlorothiazide 25 mg tablet 25 mg PO QAM 05/19/19 07/18/22 History methocarbamol 500 mg tablet 500 mg PO TID PRN Muscle Spasm 05/19/19 07/18/22 History multivitamin 1 tab PO QPM 05/19/19 07/18/22 History omeprazole [Prilosec] 20 mg PO QAM 05/19/19 07/18/22 History cimetidine 300 mg tablet 300 mg PO ACHS 09/21/20 07/18/22 History clobetasol 0.05 % topical cream 1 applic topical BID PRN ud 02/16/21 07/18/22 History diphenhydramine HCl 25 mg tablet 25 mg PO BID PRN Allergy Symptoms 02/16/21 07/18/22 History (Benadryl Allergy) ibuprofen 200 mg tablet 200 mg PO Q6H PRN Pain 02/16/21 07/18/22 History estradiol 0.1 mg/24 hr semiweekly 1 patch transdermal 2XWK #24 ea 08/17/21 07/18/22 Rx transdermal patch medroxyprogesterone 5 mg tablet 5 mg PO QAM #90 tabs 08/21/21 07/18/22 Rx amlodipine 10 mg tablet 10 mg PO DAILY 07/18/22 07/18/22 History atorvastatin 20 mg tablet 20 mg PO DAILY 07/18/22 07/18/22 History calcium carb-ergocalciferol (vit 1 tab PO DAILY 07/18/22 07/18/22 History D2) 600 mg calcium-200 unit tablet empagliflozin 25 mg tablet 25 mg PO QAM 07/18/22 07/18/22 History (Jardiance) Past Med/Surg History Medical History Abnormal uterine bleeding (AUB) Depression DM type 2 (diabetes mellitus, type 2) NIDDM GERD (gastroesophageal reflux disease) History of migraine headaches HLD (hyperlipidemia) HTN (hypertension) Postoperative nausea TMJ (temporomandibular joint disorder) Surgical History History of appendectomy History of colonoscopy History of sinus surgery History of tooth extraction Hx of LASIK Family History Brother Alcohol abuse Father Alcohol abuse Bladder cancer Hypertension Mother FH: kidney cancer PONV (postoperative nausea and vomiting) Denies family history of Colon cancer Ovarian cancer Breast cancer Social History Smoking Status: Never smoker Second Hand Exposure: No; Hx Alcohol Use: Yes Alcohol type: hard liquor Alcohol Intake Frequency Comment: a couple of times a week Hx Substance Use: No Preferred Language: Monegasque Communication Ability: Effective 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 Physical Exam . Physical examination reveals a pleasant middle-age female. Sitting up in bed and eating a dinner. She looks comfortable. Examination of the right ankle reveals the splint to be in place. Ankle looks pretty well aligned. She can flex extend her toes with pretty minimal pain. Brisk refill. She is neurologically intact. Results & Data Results & Data Laboratory Results . Diagnostic Findings . X-rays of the ankle reviewed from the ER. This shows a right trimalar ankle fracture dislocation. There are postreduction films with the ankle adequately reduced and no longer subluxated. She does have a trimalar ankle fracture. PG Care Time/CCT Total # of Minutes Spent Total Time Spent with Patient: Total time spent is greater than 50% in coordination of care (as documented) at patient's floor/unit and/or counseling patient: Coding Level of Care Code 36688 Inpt Consult Level 5 Diagnoses Trimalleolar fracture of right ankle S82.851A
[2022-07-18] MEDS ORDERED: POTASSIUM CHLORIDE CRTAB 20 MEQ TABCR PO STA (19:12)
[2022-07-18] MEDS: ACETAMINOPHEN 500 MG TAB PO PRN (19:41)
[2022-07-18] MEDS: FAMOTIDINE 20 MG TAB PO SCH (19:42)
[2022-07-18] MEDS: MULTIVITAMIN TAB PO SCH (19:42)
[2022-07-18] MEDS ORDERED: MAGNESIUM OXIDE 400 MG TAB PO ONE (19:46)
[2022-07-18] MEDS ORDERED: HEPARIN SOD 5,000 UNIT/0.5 ML VIAL SQ SCH (21:00)
[2022-07-18] MEDS: SODIUM CHLORIDE 0.9% 1000ML 1,000 ML IV SCH (21:13)
[2022-07-18] MEDS: FLUTICASONE PROPIONATE NA SPR 16 GM BTL SCH (21:13)
--- NOTE | 2022-07-19 07:27 | Anesthesiology Consultation ---
Date of Service July 19, 2022 Assessment & Plan (1) Encounter for pre-operative examination: Chart Review Chart Review: Acceptable Risk for Surgery and Patient NOT seen in Pre Admission Testing Consults Requested none History Surgery Operation Date: 07/19/22 07:00 Proposed Procedures p Right Open Reduction Internal Fixation Ankle - Derrick Veloz MD Height/Weight Height: 4 ft 11 in Weight: 74.843 kg Allergies Allergy/AdvReac Type Severity Reaction Status Date / Time lisinopril Allergy Swelling Verified 03/05/21 06:25 of Lip/Tongue/Throat Medications Home Medications Medication Instructions Recorded Confirmed Last Taken albuterol sulfate 2 puff inhalation Q4H PRN sob 05/19/19 07/18/22 Unknown fluoxetine 20 mg tablet 60 mg PO QAM 05/19/19 07/18/22 07/18/22 fluticasone propionate [Flonase 1 dose intranasal BID 05/19/19 07/18/22 07/17/22 Allergy Relief] hydrochlorothiazide 25 mg tablet 25 mg PO QAM 05/19/19 07/18/22 07/18/22 methocarbamol 500 mg tablet 500 mg PO TID PRN Muscle Spasm 05/19/19 07/18/22 03/04/21 20:00 multivitamin 1 tab PO QPM 05/19/19 07/18/22 07/18/22 omeprazole [Prilosec] 20 mg PO QAM 05/19/19 07/18/22 07/18/22 cimetidine 300 mg tablet 300 mg PO ACHS 09/21/20 07/18/22 07/18/22 clobetasol 0.05 % topical cream 1 applic topical BID PRN ud 02/16/21 07/18/22 Unknown diphenhydramine HCl 25 mg tablet 25 mg PO BID PRN Allergy Symptoms 02/16/21 07/18/22 07/17/22 (Benadryl Allergy) ibuprofen 200 mg tablet 200 mg PO Q6H PRN Pain 02/16/21 07/18/22 07/17/22 estradiol 0.1 mg/24 hr semiweekly 1 patch transdermal 2XWK #24 ea 08/17/21 07/18/22 Unknown transdermal patch medroxyprogesterone 5 mg tablet 5 mg PO QAM #90 tabs 08/21/21 07/18/22 07/18/22 amlodipine 10 mg tablet 10 mg PO DAILY 07/18/22 07/18/22 07/18/22 atorvastatin 20 mg tablet 20 mg PO DAILY 07/18/22 07/18/22 07/18/22 calcium carb-ergocalciferol (vit 1 tab PO DAILY 07/18/22 07/18/22 07/18/22 D2) 600 mg calcium-200 unit tablet empagliflozin 25 mg tablet 25 mg PO QAM 07/18/22 07/18/22 07/18/22 (Jardiance) Active Medications Generic Name Dose Route Start Last Admin Trade Name Freq PRN Reason Stop Dose Admin Acetaminophen 1,000 mg 07/18/22 17:56 07/18/22 19:41 Acetaminophen 500 Mg Tab PO 08/17/22 17:55 1,000 mg Q8H PRN Administration Moderate Pain Famotidine 20 mg 07/18/22 21:00 07/18/22 19:42 Famotidine 20 Mg Tab PO 08/17/22 20:59 20 mg ACHS AKHIL Administration Fluticasone Propionate 1 sprays 07/18/22 21:00 07/18/22 21:13 Fluticasone Propionate Na Spr 16 Gm Btl NA 08/17/22 20:59 Not Given BID AKHIL Sodium Chloride 1,000 mls @ 80 mls/hr 07/18/22 20:00 07/18/22 21:13 Nss 1000ml IV 08/17/22 19:59 80 mls/hr .[id number] AKHIL Administration Insulin Aspart 0 units 07/18/22 17:56 07/18/22 21:06 Insulin Aspart Per Unit SC 08/17/22 17:55 Not Given ACHS AKHIL Multivitamins 1 tab 07/18/22 21:00 07/18/22 19:42 Multivitamin Tab PO 08/17/22 20:59 1 tab QPM AKHIL Administration Past Medical History Medical History Abnormal uterine bleeding (AUB) Depression DM type 2 (diabetes mellitus, type 2) NIDDM GERD (gastroesophageal reflux disease) History of migraine headaches HLD (hyperlipidemia) HTN (hypertension) Postoperative nausea TMJ (temporomandibular joint disorder) Past Family History Family History Brother Alcohol abuse Father Alcohol abuse Bladder cancer Hypertension Mother FH: kidney cancer PONV (postoperative nausea and vomiting) Denies family history of Colon cancer Ovarian cancer Breast cancer Past Surgical History Surgical History History of appendectomy History of colonoscopy History of sinus surgery History of tooth extraction Hx of LASIK Social History Smoking Status: Never smoker Hx Alcohol Use: Yes Alcohol type: hard liquor alcohol intake frequency: a few times a week Hx Substance Use: No substance use type: does not use Physical Exam Vital Signs Last Vital Signs Temp 98.4 F 07/18/22 21:11 Pulse 88 07/18/22 21:11 Resp 18 07/18/22 21:11 BP 127/72 07/18/22 21:11 Pulse Ox 93 07/18/22 21:11 O2 Del Method 07/18/22 21:11 Testing Laboratory Results 07/18/22 17:33 07/18/22 17:33 PT 11.4 Seconds (9.0-12.0) 07/18/22 15:54 INR 1.1 (0.9-1.1) 07/18/22 15:54 APTT < 20.0 Seconds (21.0-31.0) L 07/18/22 15:54 07/19/22 07/18/22 06:00 20:54 POC Glucose 135 H 138 H Electrocardiogram Date: 07/18/22 Findings: + NSR @ and + LVH QTc >500
[2022-07-19] MEDS: bisacodyL 5 MG TABEC PO SCH (07:53)
[2022-07-19] MEDS: CALCIUM 600MG + VIT D 400 IU TAB PO SCH (07:53)
[2022-07-19] MEDS: POLYETHYLENE (MIRALAX) 17 GM PACK PO SCH (07:53)
[2022-07-19] MEDS: PANTOprazole 40 MG TAB PO SCH (08:00)
[2022-07-19] MEDS: FAMOTIDINE 20 MG TAB PO SCH ×4 (08:00→19:52)
[2022-07-19] MEDS: FLUoxetine HCL 20 MG CAP PO SCH (08:06)
[2022-07-19] MEDS: amLODIPine BESYLATE 5 MG TAB PO SCH (08:06)
[2022-07-19] MEDS: ATORVASTATIN 20 MG TAB PO SCH (08:06)
[2022-07-19] MEDS: FLUTICASONE PROPIONATE NA SPR 16 GM BTL SCH ×2 (08:07→19:53)
[2022-07-19] MEDS ORDERED: Nursing to Pharmacy Communication SCH (08:15)
[2022-07-19] MEDS: ACETAMINOPHEN 500 MG TAB PO PRN (08:15)
[2022-07-19 08:46] LABS: Hematocrit (blood only) 40.9 % (34.1-44.9); Hemoglobin 14.1 g/dl (12.0-16.0); Mean Corpuscular Hemoglobin 31.3 pg (25.0-34.0); Mean Corpuscular Hgb Conc 34.5 g/dL (32.0-36.0); Mean Corpuscular Volume 90.9 fL (80.0-100.0); Mean Platelet Volume 9.3 fL (9.4-12.3); Platelet Count 344 K/uL (130-400); RDW Coefficient of Variation 13.6 % (11.5-14.5); RDW Standard Deviation 45.8 fL (36.4-46.3); White Blood Count 10.34 K/ul (4.8-10.8)
[2022-07-19] MEDS ORDERED: hydroCHLOROthiazide 25 MG TAB PO SCH (09:00)
[2022-07-19 09:13] LABS: BUN Creatinine Ratio 25.9 (10-20); Calcium 9.2 mg/dl (8.5-10.1); Creatinine Clr Calc Pharmacy 90.4 ml/min; Est GFR (Non-African American) 98.3 ml/min; Magnesium 2.3 mg/dl (1.7-2.4); Potassium 3.1 mmol/L (3.5-5.1)
[2022-07-19] MEDS: INSULIN ASPART PER UNIT SC SCH ×4 (10:33→23:44)
[2022-07-19 10:52] LABS: Estimated Average Glucose 151 mg/dl; Hemoglobin A1C 6.9 % (4.5-5.6)
[2022-07-19] MEDS: POTASSIUM CHLORIDE / WTR 10 MEQ/100 ML PLCT IV SCH ×2 (11:07→13:29)
[2022-07-19] MEDS ORDERED: LIDOCAINE 2% 20 MG/ML 5 ML SYR IV ONE (11:40)
[2022-07-19] MEDS ORDERED: PROPOFOL IV EMULSION 10 MG/ML 20 ML VIAL IV ONE (11:40)
[2022-07-19] MEDS ORDERED: fentaNYL citrate 100 MCG/2 ML VIAL ONE (11:41)
[2022-07-19] MEDS ORDERED: MIDAZOLAM HCL 1 MG/ML 2ML VIAL ONE (11:41)
[2022-07-19] MEDS ORDERED: SCOPOLAMINE 1 MG TDSY TD SCH (12:30)
[2022-07-19] MEDS ORDERED: APREPITANT 40 MG CAP PO SCH (12:30)
[2022-07-19] MEDS ORDERED: SCOPOLAMINE 1 MG TDSY TD ONE (12:30)
--- NOTE | 2022-07-19 12:42 | History & Physical Bridge Note ---
Date of Service July 19, 2022 History & Physical Bridge Note I have examined the patient, reviewed the History & Physical and in the interval since the performance of the History & Physical I have noted the following changes of clinical significance: no changes noted
[2022-07-19] MEDS ORDERED: ceFAZolin 330 MG/ML 1 GM VIAL ONE (13:05)
[2022-07-19] MEDS ORDERED: BUPIVACAINE 0.5 % 5 MG/1 ML MPF 30ML VIAL ONE (13:12)
[2022-07-19] MEDS ORDERED: EPINEPHrine INJ 1 MG/ML AMP ONE (13:13)
[2022-07-19] MEDS: ceFAZolin 2000MG 2,000 MG/15 ML SYR IV ONE ×2 (13:20→16:24)
[2022-07-19] MEDS ORDERED: ACETAMINOPHEN 1000 MG/100 ML IV IV ONE (14:32)
[2022-07-19] MEDS ORDERED: ROPIVACAINE 0.5% 5 MG/ML 30 ML VIAL ONE (14:35)
[2022-07-19] MEDS ORDERED: FLUMAZENIL 0.1 MG/1 ML 10 ML VIAL IV PRN (15:32)
[2022-07-19] MEDS ORDERED: ONDANSETRON INJ 2 MG/ML 2 ML VIAL IV PRN ×2 (15:32→16:14)
[2022-07-19] MEDS ORDERED: ePHEDrine sulfate 50 MG/ML AMP IV PRN (15:32)
[2022-07-19] MEDS ORDERED: NALOXONE HCL 0.4 MG/1 ML VIAL/CARP IV PRN ×2 (15:32→16:14)
[2022-07-19] MEDS ORDERED: HYDROmorphone INJ 1 MG/ML SYRINGE IV PRN (15:32)
[2022-07-19] MEDS ORDERED: PROMETHAZINE HCL 12.5 MG in SODIUM CHLORIDE 0.9% 50 ML IV PRN ×2 (15:32→16:59)
[2022-07-19] MEDS ORDERED: LABETALOL HCL IV 5 MG/ML 20ML IV PRN (15:32)
[2022-07-19] MEDS ORDERED: ATROPINE SULFATE 0.1 MG/ML 10ML SYR IV PRN (15:32)
[2022-07-19] MEDS ORDERED: fentaNYL citrate 100 MCG/2 ML VIAL IV PRN (15:32)
--- NOTE | 2022-07-19 15:35 | Operative Report ---
PG Post Operative Report Pre & Post Diagnosis Operation Date: 07/19/22 07:00 Pre-Op Diagnosis: Right Ankle Trimalleolar Fracture Post-Op Diagnosis: Right Ankle Trimalleolar Fracture I identified the patient and participated in the time-out.: Yes Procedure Operation Date: 07/19/22 07:00 Actual Procedures p Open Reduction Internal Fixation Right Ankle Fracture(Right) - Derrick Veloz MD Surgeon Derrick Veloz MD Credit And Collections Representative Moe Dietz PA-C Estimated Blood Loss 20 Findings Consistent with Post-Op Diagnosis Operative findings revealed a right trimalleolar ankle fracture dislocation. There was some comminution particular the medial malleolus. Specimens None. Anesthesia Type General Regional Complications none Disposition Accompanied Patient To Recovery: No Indications Patient is a 66-year-old female who was sustained injury to her right ankle left yesterday. She was descending steps and when she twisted no her ankle gave way. Cute onset of pain. She was brought to emergency room where x-rays were Ultramol ankle fracture dislocation. She underwent closed reduction and splinting. She is now indicated for surgical management. Description of Procedure Operative implants consist of: 1 medial side implants consisted of 4.0 partially-threaded the long threaded cannulated 4.0 cancellous screws x2 1 with a washer. Lateral side implants consisted of a Synthes 8 hole one third semitubular locking plate with four 3.5 mm cortical screws, two 4.0 fully threaded cancellous screws, one 4.0 partially-threaded cancellous screw. The patient was taken the operating, identified, placed on the operating table supine position protectors were properly padded. IV antibiotics tried by anesthesia team. A general anesthetic was implemented by anesthesia team. A right thigh tent was then placed to the right lower extremity splint was then removed. The right foot and ankle were then scrubbed with Hibiclens, prepped with ChloraPrep and draped in usual sterile fashion. The right leg was elevated exsanguinated with use of an Esmarch in terms playset 300 mmHg. Attention was first turned to the medial side. An oblique incision was made over the medial malleolus directly over the fracture site. Sharp dissection Through subcutaneous tissue directly down the fracture. The saphenous vein was identified and retracted posteriorly and protected throughout the case. There was periosteum that was pulled out of the fracture site. There was some comminution as well particularly anteriorly and they were very small pieces that we could not pieced back together and hold keep from a migrating into the joint. Therefore they were removed. The fracture was reduced anatomically and held with a reduction clamp. I placed 2 wires across the joint. The position of this was verified. The anterior wire was fairly close to the joint but I verified it was outside the joint on x-ray. We then measured and placed screws over both guidewires with the anterior screw using a washer to maximize compression. Once again I could not place some of the comminuted segments as they were adjacent to the joint line and joint surface and it would migrate into the joint. All hardware was checked and found to be appropriate position. Attention drawn laterally. Direct lateral approach of the fibula was then performed through a longitudinal incision over the fibula. Sharp dissection Through subcutaneous tissue directly down to the fracture. The fracture was cleaned of all soft tissues. Was irrigated. I then reduced this and held it with a reduction clamp and fixed it with a single 4.00 partially-threaded cancellous screw in a lag fashion. We did not get great purchase with the. It was good enough to hold the fracture reduced. I contoured an 8 hole one third semitubular plate to the lateral aspect of the fibula and fixed it proximally with four 3.50 fully threaded cortical screws and then distally with a two 4.0 fully threaded cancellous screws. X-rays brought in. All hardware is appropriately positioned. The fracture was anatomically aligned. I stressed the ankle under x-ray and there was no gapping of the medial clear space. Attention drawn toward closing. The wound was irrigated scopes also irrigation. I did inject locally with 30 cc of half percent Marcaine with epinephrine. The periosteum over the plate was then closed with 2-0 Vicryl suture in a [id number] fashion. The tourniquet was let down for turn time 68 minutes. Hemostasis assured use electrocautery. Wound both wounds were then once again irrigated. The subcutaneous tissues of both wounds were then closed with 2-0 Vicryl suture in a buried interrupted fashion. Skin was closed with 3-0 nylon suture in a simple fashion. Leg was then cleaned and dried and sterile dressing was Xeroform, 4 x 4's, sterile cast padding and a well-padded posterior and stirrup splint were applied. The patient then brought out of general incision transferred to the recovery room in stable condition. Patient tolerated procedure well and there were no complications. Moe Dietz, my physician web press operator assistant, was present for the entire procedure. His assistance was required for proper patient positioning, prepping and draping, surgical exposure, perform the technical details of the operation, placement of the hardware, closure of the wound, placement of the sterile splint and bandage. I attest to the content of the Intraoperative Record and any orders documented therein. Any exceptions are noted below.
--- NOTE | 2022-07-19 15:36 | Fluoroscopy Report ---
FL ankle RT min 3V RTN CLINICAL HISTORY: RT ORIF TECHNIQUE: 7 views were obtained with the C-arm in the OR with the above procedure. Total fluoroscopy time was 38.9 seconds. Total skin dose was 0.75 mGy. Comparison: None available at the time of this dictation. FINDINGS/IMPRESSION: Intraoperative images were obtained of open reduction internal fixation of the r ight ankle. Please correlate with intraoperative fluoroscopy and operative report. ACT 112: Negative or not required by law. Electronically signed by: Navarro Shore M.D. 07/19/2022 3:35 PM
--- NOTE | 2022-07-19 15:44 | Anesthesiology Progress Note ---
Date of Service July 19, 2022 Anesthesia Post Procedure Vital Signs Vital Signs: Temp Pulse Pulse Pulse Resp BP BP 07/19/22 15:40 36.9 C 73 12 07/19/22 15:30 76 13 07/19/22 15:20 80 16 07/19/22 15:10 37 C 82 16 07/19/22 11:46 37.2 C 83 20 07/19/22 07:36 36.9 C 78 16 07/18/22 21:11 36.9 C 88 18 127/72 07/18/22 18:22 36.9 C 89 18 133/78 07/18/22 17:35 96 H 18 154/78 H 07/18/22 15:50 37.1 C 72 20 130/76 BP Pulse Ox O2 Del Method O2 Flow Rate 07/19/22 15:40 131/66 73 L Room Air 07/19/22 15:30 137/64 93 Room Air 07/19/22 15:20 134/71 99 Oxymask 9 07/19/22 15:10 161/71 H 98 Oxymask 9 07/19/22 11:46 131/65 94 Room Air 07/19/22 07:36 124/68 96 Room Air 07/18/22 21:11 93 Room Air 07/18/22 18:22 96 Room Air 07/18/22 17:35 94 Room Air 07/18/22 15:50 98 Room Air Pain Intensity Right Ankle: Pain Intensity: 4 Transfer of Care Handoff Completed per policy Notes Mental Status: alert / awake / arousable Patient Amnestic to Procedure: Yes Nausea / Vomiting: adequately controlled Pain: adequately controlled Airway Patency, RR, SpO2: stable & adequate BP & HR: stable & adequate Hydration State: stable & adequate Anesthetic Complications: no major complications apparent
[2022-07-19] MEDS ORDERED: diphenhydrAMINE Capsule 25 MG CAP PO PRN (16:14)
[2022-07-19] MEDS ORDERED: METOCLOPRAMIDE HCL INJ 5 MG/ML 2 ML VIAL IV PRN (16:14)
[2022-07-19] MEDS ORDERED: MAGNESIUM HYDROXIDE SUSP 30 ML UDC PO PRN (16:14)
[2022-07-19] MEDS ORDERED: HYDROmorphone INJ 0.5 MG/0.5 ML SYR IV PRN (16:14)
[2022-07-19] MEDS ORDERED: ALUMINUM/MAGNESIUM SUSP 30 ML UDC PO PRN (16:14)
[2022-07-19] MEDS ORDERED: ALBUTEROL HFA 8 GM INHALER INH PRN (16:14)
[2022-07-19] MEDS ORDERED: PHARMACY GLYCEMIC MGMT CONSULT PRN (16:14)
[2022-07-19] MEDS ORDERED: bisacodyL 10 MG SUPP PR PRN (16:14)
[2022-07-19] MEDS ORDERED: oxyCODONE HCL IR 5 MG TAB (IMMEDIATE RELEASE) PO PRN (16:14)
[2022-07-19] MEDS: SODIUM CHLORIDE 0.9% 1000ML 1,000 ML IV SCH ×2 (16:19→16:28)
[2022-07-19] MEDS: CHECK SCOPOLAMINE PATCH PLACEMENT SCH ×2 (16:40→23:43)
[2022-07-19] MEDS ORDERED: POTASSIUM CHLORIDE CRTAB 20 MEQ TABCR PO STA (17:07)
--- NOTE | 2022-07-19 17:13 | Electrocardiogram Report ---
Test Reason : Blood Pressure : / mmHG Vent. Rate : 098 BPM Atrial Rate : 098 BPM P-R Int : 158 ms QRS Dur : 076 ms QT Int : 404 ms P-R-T Axes : 050 -59 021 degrees QTc Int : 515 ms Normal sinus rhythm Possible Left atrial enlargement Left axis deviation Left ventricular hypertrophy Inferior infarct (cited on or before 18-JUL-2022) Anterolateral infarct , age undetermined Prolonged QT Abnormal ECG When compared with ECG of 20-FEB-2021 12:11, Anterolateral infarct is now Present Inferior infarct is now Present QT has lengthened Confirmed by Marcus Bennett ([id number]) on 07/19/2022 5:12:49 PM Referred By: REFERRED SELF Confirmed By:Marcus Bennett
--- NOTE | 2022-07-19 17:50 | Hospitalist Progress Note ---
Date of Service July 19, 2022 Assessment & Plan (1) Trimalleolar fracture of right ankle: Plan: Per admitting service notes with addendum: - Admit to med surg - Ortho consulted for possible surgical intervention - Xray imaging reviewed showing Right ankle trimalleolar fracture - Allow diet currently, make n.p.o. at midnight -Pain control with Tylenol [id number], oxycodone every 6 hours as needed, IV morphine as needed for severe pain -Bowel regimen ordered with MiraLAX and Dulcolax daily -PT/OT consults -EKG reviewed, without any acute findings -CXR one-view portable ordered for preoperative assessment -Neg COVID 07/19 Stable overall EKG: QTc improved to 480 Potassium 3.1, replacement ordered No medical contraindication to proceed with orthopedic surgery (2) Hypercholesterolemia: Plan: -Continue statin therapy (3) HTN (hypertension): Plan: -May continue amlodipine Hold HCTZ to prevent dehydration, hypotension perioperatively (4) DM II (diabetes mellitus, type II), controlled: Plan: - ISS with Accu-Cheks ACHS, hold Jardiance, A1c 6.9 (5) Common migraine without aura: Plan: -History of such traditionally uses ibuprofen as an outpatient, has not needed medication recently (6) GERD (gastroesophageal reflux disease): Plan: - Cont omeprazole (7) Depression: Plan: QT prolonged to yesterday to 515 QTC improved to 480 today Hold Prozac tonight Continue potassium replacement Avoid QT prolonging agents DVT ppx: -Lovenox or heparin subcutaneous when okay with orthopedic surgery next CODE: Full Dispo: PT and OT evaluation May need acute rehab Admission and Anticipated Discharge Date Admission Date: July 18, 2022 Subjective Follow-up for right ankle fracture, etc. Seen resting in bed, comfortable, not in distress States she feels fine overall except for right foot pain with movement, but currently adequately controlled no chest pain, dyspnea, palpitations, dizziness No other symptoms Review of Systems Review of Systems: all noted and negative except for above Physical Exam Physical Exam: General- oriented x 3, not in distress, speaks in sentences with no effort or accessory muscle use Eyes- anicteric Neck- no JVD Lungs- clear breath sounds bilaterally, no rales/wheezes Heart- normal rate, regular rhythm; no murmurs Abdomen- normal bowel sounds, nondistended, soft, nontender Extremities- no pretibial edema, no calf tenderness Right foot-cast in place, no edema/hematoma/tenderness of the toes, can move all toes fully Neuro- alert, oriented x 3; no gross focal neurologic deficits Skin- warm & dry Results & Data Results & Data ([facility]) Vital Signs (Past 12 Hours) Vital Signs Temp Pulse Pulse Resp BP Pulse Ox O2 Del Method 07/19/22 17:16 36.5 C 74 18 135/73 98 Nasal Cannula 07/19/22 16:36 36.7 C 69 18 127/61 99 Nasal Cannula 07/19/22 16:00 37.1 C 70 18 123/68 98 Room Air 07/19/22 15:50 72 12 131/66 96 Nasal Cannula 07/19/22 15:40 36.9 C 73 12 131/66 95 Room Air 07/19/22 15:30 76 13 137/64 93 Room Air 07/19/22 15:20 80 16 134/71 99 Oxymask 07/19/22 15:10 37 C 82 16 161/71 H 98 Oxymask 07/19/22 11:46 37.2 C 83 20 131/65 94 Room Air 07/19/22 07:36 36.9 C 78 16 124/68 96 Room Air O2 Flow Rate 07/19/22 17:16 2 07/19/22 16:36 2 07/19/22 16:00 07/19/22 15:50 2 07/19/22 15:40 07/19/22 15:30 07/19/22 15:20 9 07/19/22 15:10 9 07/19/22 11:46 07/19/22 07:36 all noted and reviewed including below
[2022-07-19] MEDS: KETOROLAC TROMETHAMINE 15 MG/ML VIAL IV SCH ×2 (18:12→23:59)
[2022-07-19] MEDS: ASCORBIC ACID 500 MG TAB PO SCH (18:12)
[2022-07-19] MEDS ORDERED: INFLUENZA VACCINE HIGH DOSE PF 65+ 0.7 ML SYR IM ONE (18:42)
[2022-07-19] MEDS: ASPIRIN 81 MG ECTAB PO SCH (19:51)
[2022-07-19] MEDS: DOCUSATE SODIUM 100 MG CAP PO SCH (19:51)
[2022-07-19] MEDS: MULTIVITAMIN TAB PO SCH (19:52)
[2022-07-19] MEDS ORDERED: SENNA 8.6 MG TAB PO SCH (21:00)
[2022-07-19] MEDS: ACETAMINOPHEN 500 MG TAB PO SCH (21:55)
[2022-07-19] MEDS: ceFAZolin 1000MG 1,000 MG/7.5 ML SYR IV SCH (22:13)
--- NOTE | 2022-07-19 22:26 | Electrocardiogram Report ---
Test Reason : Blood Pressure : / mmHG Vent. Rate : 080 BPM Atrial Rate : 080 BPM P-R Int : 134 ms QRS Dur : 088 ms QT Int : 424 ms P-R-T Axes : 031 -32 015 degrees QTc Int : 489 ms Normal sinus rhythm Left axis deviation Inferior infarct (cited on or before 18-JUL-2022) Prolonged QT Abnormal ECG When compared with ECG of 18-JUL-2022 16:29, Criteria for Anterolateral infarct are no longer Present Nonspecific T wave abnormality no longer evident in Anterior leads Confirmed by Marcus Bennett ([id number]) on 07/19/2022 10:26:41 PM Referred By: REFERRED SELF Confirmed By:Marcus Bennett
[2022-07-20] MEDS ORDERED: Nursing to Pharmacy Communication SCH (03:30)
[2022-07-20] MEDS: ACETAMINOPHEN 500 MG TAB PO SCH ×2 (06:18→13:49)
[2022-07-20] MEDS: ceFAZolin 1000MG 1,000 MG/7.5 ML SYR IV SCH (06:19)
[2022-07-20] MEDS: KETOROLAC TROMETHAMINE 15 MG/ML VIAL IV SCH ×2 (06:19→11:55)
[2022-07-20] MEDS: SODIUM CHLORIDE 0.9% 1000ML 1,000 ML IV SCH (06:29)
[2022-07-20 06:32] LABS: Basophils # (auto) 0.08 K/uL (0-0.2); Basophils % (auto) 0.8 %; Eosinophils # (auto) 0.25 K/uL (0-0.50); Eosinophils % (auto) 2.5 %; Hematocrit (blood only) 38.6 % (34.1-44.9); Hemoglobin 12.8 g/dl (12.0-16.0); Immature Granulocytes # (auto) 0.04 K/uL (0.00-0.02); Immature Granulocytes % (auto) 0.4 %; Lymphocytes # (auto) 0.98 K/uL (1.2-3.4); Lymphocytes % (auto) 9.9 %; Mean Corpuscular Hemoglobin 31.1 pg (25.0-34.0); Mean Corpuscular Hgb Conc 33.2 g/dL (32.0-36.0); Mean Corpuscular Volume 93.9 fL (80.0-100.0); Mean Platelet Volume 9.4 fL (9.4-12.3); Monocytes # (auto) 0.68 K/uL (0.24-0.82); Monocytes % (auto) 6.9 %; Neutrophils # (auto) 7.87 K/uL (1.4-6.5); Neutrophils % (auto) 79.5 %; Platelet Count 275 K/uL (130-400); RDW Coefficient of Variation 13.8 % (11.5-14.5); RDW Standard Deviation 47.8 fL (36.4-46.3); Red Blood Count 4.11 M/uL (3.93-5.22)
[2022-07-20 07:16] LABS: BUN Creatinine Ratio 23.3 (10-20); Calcium 8.3 mg/dl (8.5-10.1); Creatinine Clr Calc Pharmacy 113.5 ml/min; Est GFR (African American) 122.8 ml/min; Magnesium 2.1 mg/dl (1.7-2.4); Potassium 3.5 mmol/L (3.5-5.1)
[2022-07-20] MEDS: PANTOprazole 40 MG TAB PO SCH (08:13)
[2022-07-20] MEDS: ASCORBIC ACID 500 MG TAB PO SCH (08:13)
[2022-07-20] MEDS: FAMOTIDINE 20 MG TAB PO SCH ×2 (08:13→11:55)
[2022-07-20] MEDS: amLODIPine BESYLATE 5 MG TAB PO SCH (08:14)
[2022-07-20] MEDS: ASPIRIN 81 MG ECTAB PO SCH (08:14)
[2022-07-20] MEDS: ATORVASTATIN 20 MG TAB PO SCH (08:14)
[2022-07-20] MEDS: DOCUSATE SODIUM 100 MG CAP PO SCH (08:14)
[2022-07-20] MEDS: CALCIUM 600MG + VIT D 400 IU TAB PO SCH (08:15)
[2022-07-20] MEDS: FLUoxetine HCL 20 MG CAP PO SCH (08:15)
[2022-07-20] MEDS: FLUTICASONE PROPIONATE NA SPR 16 GM BTL SCH (08:15)
[2022-07-20] MEDS: POLYETHYLENE (MIRALAX) 17 GM PACK PO SCH (08:15)
[2022-07-20] MEDS: bisacodyL 5 MG TABEC PO SCH (08:16)
[2022-07-20] MEDS ORDERED: MULTIVITAMIN TAB PO SCH (09:00)
--- NOTE | 2022-07-20 09:02 | Progress Notes ---
DATE OF NOTE: 07/20/2022 SUBJECTIVE: A 66-year-old female diabetic postoperative day 1 from ORIF of a right trimalleolar ankl e fracture. She is doing pretty well this morning. It feels like the block is wearing off and start ing to have a little bit more pain. No new complaints. No chest pain or shortness of breath. Not f eeling dizzy or lightheaded. OBJECTIVE: VITAL SIGNS: Temperature 37.2. Vital signs are stable. GENERAL: Physical exam shows a pleasant middle-aged female. She is lying in bed, looks pretty comfo rtable this morning. EXTREMITIES: Examination of the right leg reveals the splint to be in place. No drainage. She can dorsiflex and plantarflex her toes appropriately. She is neurologically intact. LABORATORY DATA: Hemoglobin is 12.8. Hematocrit 38.6. Electrolytes are stable. ASSESSMENT: A 66-year-old diabetic postoperative day 1 from open reduction and internal fixation of right trimalleolar ankle fracture, doing reasonably well. Starting to have a little bit more pain, w hich is not unusual. She is neurologically intact. PLAN: 1. DVT prophylaxis includes thigh-high TEDs, SCDs, and aspirin twice a day. 2. PT/OT. She is nonweightbearing on this right leg for the next 2 weeks. 3. Pain control, doing okay with current pain regimen. 4. Heel precautions. We instructed her to keep all pressure off the heel at all times. 5. Disposition: Plan to discharge to home later today if she does okay in therapy. I will be follo wing her back in 2 weeks. Job ID: [id number]
[2022-07-20] MEDS: INSULIN ASPART PER UNIT SC SCH ×2 (09:41→13:44)
[2022-07-20] MEDS: CHECK SCOPOLAMINE PATCH PLACEMENT SCH (09:46)
[2022-07-21] MEDS ORDERED: ESTRADIOL 0.1 MG/24hrs TDSY TD SCH (09:00)
--- NOTE | 2022-07-28 19:54 | Discharge Summary ---
Date of Service July 28, 2022 Admission HPI Per Admitting Provider This is a 66-year-old female with a PMHx of DM type II, obesity, hypertension, hyperlipidemia, migraines, anxiety and depression, who presents today after a fall she sustained while going down the basement stairs while carrying a large crockpot, missed stepped on the second to last step and fell down work resulting in a right trimalleolar fracture which was found in the ER. She was unable to bear weight at home. She reports taking ibuprofen earlier today due to pain and states that it is moderate at this point in time. Her was home and helped her up the stairs from the basement but reports it was very difficult. She denies any presyncopal symptoms, lightheadedness, dizziness, denies hitting of her head or loss of consciousness. She did take all her morning medications today routinely. She has been eating and drinking well, last time she had anything by mouth was very early this morning. She is awaiting a ankle fixation in the ER currently. Discharge Data Consultations 07/18/22 16:11 ED Decision to Admit Stat 07/18/22 17:17 Consult Orthopedic Surgery Routine Procedures Performed Operation Date: 07/19/22 07:00 Actual Procedures p Open Reduction Internal Fixation Right Ankle Fracture(Right) - Derrick Veloz MD Hospital Course (1) Trimalleolar fracture of right ankle: This is a 66 year old patient admitted on 07/18/22 with a trimalleolar ankle f racture/dislocation and underwent closed reduction of her ankle in the emergency department. On 07/19/22 she underwent ORIF of the ankle fracture. She tolerated the procedure well and there were no complications. Transferred to the PACU post op and later to the orthopedic floor for further care. She was given ancef for antibiotic prophylaxis. She was also given FRANSISCA stockings, SCDs, and aspirin for DVT prophylaxis. Hemoglobin, hematocrit, and vital signs were monitored during her hospital stay and remained stable. Did not require any blood transfusions. There were no complications during her hospital stay. By post op day #1 the patient was tolerating a diabetic diet, pain was reasonably controlled with oral pain medicine, and she was participating in physical therapy. On post op day #1 the patient was discharged home and set up with home health care. She was given printed discharge instructions including prescriptions for extra strength tylenol, aspirin, and oxycodone. She was instructed to be nonweight bearing on the right lower extremity. Follow up approximately 2 weeks post op or sooner if there are problems or concerns. Coding Level of Care Code None Diagnoses Trimalleolar fracture of right ankle S82.851A
== END 2022-07-20 14:39 | disposition home health service (06) | DRG 494 ==
LOC: ED 13:48 → SUATTDRO 16:24 → 3N 16:24